=== PATIENT | male | born 1950 | race Caucasian/White ===

== ENCOUNTER 2020-10-23 09:42 | Observation (INO) | payer MEDICARE, OTHER ==
[~2020-10-23] VITALS: Ht 170.2 cm; Wt 88.5 kg
[~2020-10-23 09:42] MED LIST: ASPIRIN EC81 MG PO; ATORVASTATIN CA20 MG PO; CLOPIDOGREL75 MG PO; METOPROLOL SUCC25 MG PO; NITROGLYCERIN0.4 MG SL; NORVASC5 MG PO; OMEPRAZOLE40 MG PO; PROTONIX 40 MG40 M1 PO
[2020-10-23 10:31] LABS: HEMOGLOBIN 14.6 gm/dl (14.0-17.5); RED BLOOD COUNT 4.89 M/UL (4.20-5.50); WHITE BLOOD COUNT 8.7 K/UL (4.5-11.0)
[2020-10-23 10:47] LABS: BUN/CREATININE RATIO 9 (0-10)
[2020-10-24 04:18] LABS: HEMOGLOBIN 14.3 gm/dl (14.0-17.5); RED BLOOD COUNT 4.7 M/UL (4.20-5.50); WHITE BLOOD COUNT 7.2 K/UL (4.5-11.0)
[2020-10-24] MEDS ORDERED: PROTONIX 40 MG40 M1 PO (15:00)
== END 2020-10-24 16:09 | disposition home or self-care (01) ==
LOC: ER1 09:42 → CDU 11:49 → M/S 13:58
PROVIDERS: Emergency Medicine; ADMIT Internal Medicine
DX: R07.89 Other chest pain (principal); N17.9 Acute kidney failure, unspecified; I25.10 Atherosclerotic heart disease of native coronary artery without angina pectoris; E78.5 Hyperlipidemia, unspecified; E11.9 Type 2 diabetes mellitus without complications; I10 Essential (primary) hypertension; I08.1 Rheumatic disorders of both mitral and tricuspid valves; I25.2 Old myocardial infarction; R94.39 Abnormal result of other cardiovascular function study; K21.9 Gastro-esophageal reflux disease without esophagitis; M25.78 Osteophyte, vertebrae; Z79.82 Long term (current) use of aspirin; Z79.02 Long term (current) use of antithrombotics/antiplatelets; Z79.899 Other long term (current) drug therapy; Z20.822 Contact with and (suspected) exposure to COVID-19; Z95.5 Presence of coronary angioplasty implant and graft; Z87.19 Personal history of other diseases of the digestive system; Z87.891 Personal history of nicotine dependence
CPT/HCPCS: ECHO; 36415; 70450; 71045; 72040; 78452; 80048; 80053; 82550; 82553; 83036; 83735; 83874; 84484; 85025; 93005; 93017; 93306; 96372; 99285; A9502; G0378; J1650; J7040; U0002